=== PATIENT | female | born 1955 | race Hispanic/Latino ===

== ENCOUNTER 2021-04-05 06:30 | Emergency (ER) | payer BC ==
--- OUTSIDE RECORDS SUMMARY | 2021-04-05 06:33 | XMS REPORT | Continuity of Care Document ---
:1955 Author Organization [facility] t Address [address] [place] [address] [place] [id number] Care Team Providers Name Role Phone Unavailable Unavailable Unavailable Problems Condition Condition Condition Status Onset Resolution Last Treating Co mments Source Name Details Category Date Date Treatment Clinician Date Impingemen Impingemen Problem Active [facility] syndrome t syndrome Sybil kes - of left of left Memoria shoulder shoulder [facility] Impingemen Impingemen Problem Active [facility] t syndrome t syndrome Sybil kes - of right of right Memori a shoulder shoulder [facility] Pain in Pain in Diagnosis Active [facility] right [facility] shoulder shoulder [facility] Pain in Pain in Problem Active [facility] left [facility] shoulder shoulder [facility] Allergies, Adverse Reactions, Alerts This patient has no known allergies or adverse reactions. Medications Ordered Filled Start Stop Current Ordering Indication Dosage Frequency Signature Comments Components Source Medication Medication Date Date Medication? Clinician (SIG) Name Name Medrol Medrol 2019-0 Yes Erlin As [facility] 7-11 [facility] - 00:00: [facility]oria 00 [facility] Procedures This patient has no known procedures. Encounters Start End Encounter Admission Attending Care Care Encounter Source Date/Time Date/Time Type Type Clinicians Facility Department ID 2018-10-05 2018-10-05 [facility] [id number] [facility] [address] 09:30:00 09:30:00 [facility] Results This patient has no known results.
[2021-04-05] MEDS ORDERED: dexAMETHasone 10 MG/ML VIAL ONE (07:12)
--- NOTE | 2021-04-05 08:58 | EDPHYS ---
Physician Documentation [facility] Name: Kay Harrison Age: 65 yrs Sex: Female : 1955 Arrival Date: 04/05/2021 Time: 06:35 Bed 12 Private MD: SONJA Physician David Wolfe HPI: 04/05 07:00 This 65 yrs old Female presents to ER via Ambulatory with complaints of Rash. [facility] 07:00 The patient's rash thought to be caused by an unknown cause. The rash is located on the [facility] body diffusely. The rash can be described as urticarial. Onset: The symptoms/episode began/occurred gradually, last night. Associated signs and symptoms: Pertinent positives: itching, Pertinent negatives: difficulty breathing, fever, swelling of lips, swelling of throat, swelling of tongue, vomiting. The patient has not experienced similar symptoms in the past. Patient states symptoms occurred approx 1 hour after eating peanuts. Patient states feeling weak. denies vomiting, throat swelling sensation. rash was diffuse. . 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 - Social history:: Smoking status: Patient reports the use of cigarette tobacco products, smokes one-half pack cigarettes per day. ROS: 07:00 Constitutional: Negative for fever, chills, and weight loss, Cardiovascular: Negative jmm for chest pain, palpitations, and edema, Respiratory: Negative for shortness of breath, cough, wheezing, and pleuritic chest pain. 07:00 Skin: Positive for rash. 07:00 All other systems are negative. Exam: 07:00 Constitutional: This is a well developed, well nourished patient who is awake, alert, jmm and in no acute distress. Head/Face: atraumatic. Eyes: EOMI, no conjunctival erythema appreciated ENT: Moist Mucus Membranes Neck: Trachea midline, Supple Chest/axilla: Normal chest wall appearance and motion. Cardiovascular: Regular rate and rhythm. No edema appreciated Respiratory: Normal respirations, no respiratory distress appreciated Abdomen/GI: Non distended, soft Back: Normal ROM 07:00 Neuro: Awake and alert, normal gait Psych: Behavior is normal, Mood is normal, Patient is cooperative and pleasant 07:00 Skin: urticaria. Vital Signs: 06:42 BP 106 / 72; Pulse 107; Resp 16 S; Pulse Ox 100% on R/A; Weight 58.97 kg (R); Height 5 bb ft. 0 in. (152.40 cm) (R); 09:04 BP 112 / 70; Pulse 87; Pulse Ox 100% on R/A; ap3 06:42 Body Mass Index 25.39 (58.97 kg, 152.40 cm) bb MDM: 07:00 Patient medically screened. [facility] 08:57 Data reviewed: vital signs, nurses notes. Counseling: I had a detailed discussion with kay the patient and/or guardian regarding: the historical points, exam findings, and any diagnostic results supporting the discharge/admit diagnosis, the need for outpatient follow up, to return to the emergency department if symptoms worsen or persist or if there are any questions or concerns that arise at home. ED course: Patient states feeling much better. No SOB. Patient given strict return precautions. patient understood and agrees with the plan of care. . Administered Medications: 07:15 Drug: Decadron (dexamethasone) 10 mg Route: IM; Site: left gluteus; ap3 08:45 Follow up: Response: Marked relief of symptoms ap3 Disposition: 16:18 Co-signature as Attending Physician, David Wolfe MD I agree with the assessment and kdr plan of care. Disposition Summary: 04/05/21 08:58 Discharge Ordered Location: Home [facility] Condition: Stable [facility] Diagnosis - Allergic urticaria [facility] Followup: [facility] - With: Private Physician - When: 2 - 3 days - Reason: Recheck today's complaints, Continuance of care, Re-evaluation by your physician Discharge Instructions: - Discharge Summary Sheet [facility] - Allergies, Adult [facility] - Hives [facility] Forms: - Medication Reconciliation Form [facility] - Thank You Letter [facility] - Antibiotic Education [facility] - Prescription Opioid Use [facility] Prescriptions: - EpiPen 0.3 mg/0.3 mL Injection auto-injector - inject 0.3 milliliter by INTRAMUSCULAR route as directed as needed for jmm anaphylaxis; 1 Pen Needle; Refills: 0, Product Selection Permitted - Hydroxyzine HCl 25 mg Oral Tablet - take 1 tablet by ORAL route every 6 hours As needed; 30 tablet; Refills: 0, [facility] Product Selection Permitted - Prednisone 20 mg Oral Tablet - take 3 tablets by ORAL route once daily for 5 days; 15 tablet; Refills: 0, [facility] Product Selection Permitted Signatures: David Wolfe MD MD kdr Mickail, Joel, PA PA jmm Ballard, Brenda, RN RN Kristine Pederson RN RN ap3
--- NOTE | 2021-04-05 08:58 | ER ---
Nurse's Notes [facility] Name: Kay Harrison Age: 65 yrs Sex: Female : 1955 Arrival Date: 04/05/2021 Time: 06:35 Bed 12 Private MD: Diagnosis: Allergic urticaria Presentation: 04/05 06:42 Chief complaint: Patient states: pt believes she is having an allergic reaction to an bb unknown source. generalizes urticaria to the hands, feet, torso, back, and buttocks. swelling noted to both hands. took 2 Benadryl Q4 hours yesterday as well as Benadryl cream. last time taking benadryl PO was 2100 yesterday. denies SOB. Coronavirus screen: Client denies travel out of the [place] in the last 14 days. At this time, the client does not indicate any symptoms associated with coronavirus-19. Ebola Screen: No symptoms or risks identified at this time. Initial Sepsis Screen: Does the patient meet any 2 criteria? No. Patient's initial sepsis screen is negative. Does the patient have a suspected source of infection? No. Patient's initial sepsis screen is negative. Risk Assessment: Do you want to hurt yourself or someone else? Patient reports no desire to harm self or others. Onset of symptoms was April 04, 2021 at 05:00. 06:42 Method Of Arrival: Ambulatory 06:42 Acuity: JEFF 4 bb 06:42 Acuity: JEFF 3 bb Triage Assessment: 06:48 General: Appears in no apparent distress. comfortable, Behavior is calm, cooperative. bb Pain: Denies pain. Neuro: Level of Consciousness is awake, alert, obeys commands, Oriented to person, place, time, situation. Cardiovascular: Capillary refill < 3 seconds. Respiratory: Airway is patent Trachea midline Respiratory effort is even, unlabored, Respiratory pattern is regular, symmetrical. GI: No signs and/or symptoms were reported involving the gastrointestinal system. : No signs and/or symptoms were reported regarding the genitourinary system. Derm: Reports itching. Musculoskeletal: Circulation, motion, and sensation intact. Range of motion: intact in all extremities. 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 - Social history:: Smoking status: Patient reports the use of cigarette tobacco products, smokes one-half pack cigarettes per day. Screenin:16 Abuse screen: Denies threats or abuse. Nutritional screening: No deficits noted. ap3 Tuberculosis screening: No symptoms or risk factors identified. Fall Risk None identified. Assessment: 07:15 General: Appears in no apparent distress. Behavior is calm, cooperative, appropriate ap3 for age. Neuro: Level of Consciousness is awake, alert, obeys commands, Oriented to person, place, time, situation. Respiratory: Airway is patent Respiratory effort is even, unlabored, Respiratory pattern is regular, symmetrical. Derm: Rash noted that is itchy, on generalized. 08:13 Reassessment: Patient and/or family updated on plan of care and expected duration. Pain ap3 level reassessed. Patient is alert, oriented x 3, equal unlabored respirations, skin warm/dry/pink. Patient states feeling better. Patient states symptoms have improved. Vital Signs: 06:42 BP 106 / 72; Pulse 107; Resp 16 S; Pulse Ox 100% on R/A; Weight 58.97 kg (R); Height 5 bb ft. 0 in. (152.40 cm) (R); 09:04 BP 112 / 70; Pulse 87; Pulse Ox 100% on R/A; ap3 06:42 Body Mass Index 25.39 (58.97 kg, 152.40 cm) ED Course: 06:35 Patient arrived in ED. bp1 06:48 Triage completed. bb 06:48 Arm band placed on. bb 06:52 Cy Verduzco PA is PHCP. [facility] 06:52 David Wolfe MD is Attending Physician. [facility] 07:08 Kristine Kim, FREDIS is Primary Nurse. ap3 07:16 Patient has correct armband on for positive identification. Call light in reach. Pulse ap3 ox on. NIBP on. Door closed. Noise minimized. 07:16 No provider procedures requiring assistance completed. ap3 09:04 Patient did not have IV access during this emergency room visit. ap3 Administered Medications: 07:15 Drug: Decadron (dexamethasone) 10 mg Route: IM; Site: left gluteus; ap3 08:45 Follow up: Response: Marked relief of symptoms ap3 Outcome: 08:58 Discharge ordered by MD. villanueva 09:03 Discharged to home ambulatory. ap3 09:03 Condition: good 09:03 Discharge instructions given to patient, family, Instructed on discharge instructions, follow up and referral plans. medication usage, Demonstrated understanding of instructions, follow-up care, medications, Prescriptions given X 3. 09:09 Patient left the ED. ap3 Signatures: Cy Verduzco PA PA jmm Ballard, Brenda, RN RN Kristine Pederson RN RN ap3 Lillian Pitts
[2021-04-05 09:26] VITALS: O2SAT 100
[2021-04-05 09:28] VITALS: BP 112/70
== END 2021-04-05 09:09 | disposition home or self-care (01) ==
LOC: ER 06:30
DX: L50.0 Allergic urticaria (principal); F17.210 Nicotine dependence, cigarettes, uncomplicated
CPT/HCPCS: 96372; 99283; J1100